=== PATIENT | male | born 1975 | race Hispanic/Latino ===

== ENCOUNTER 2023-06-05 11:04 | Emergency (ER) | payer SELFPAY ==
[2023-06-05 11:04] VITALS: TEMP 97.8
[2023-06-05] MEDS ORDERED: AMLO1TAB25 PO ×2 (11:15→14:11)
[2023-06-05 14:20] VITALS: BP 142/92; O2SAT 98
== END 2023-06-05 14:34 | disposition home or self-care (01) ==
LOC: M ED 11:04
DX: I10 Essential (primary) hypertension (principal); R00.0 Tachycardia, unspecified; I25.2 Old myocardial infarction; F10.10 Alcohol abuse, uncomplicated; Z79.899 Other long term (current) drug therapy